=== PATIENT | female | born 1995 | race Caucasian/White ===

== ENCOUNTER → 2019-06-03 | Outpatient (CLI) | payer BC, MEDICARE, OTHER ==
--- NOTE | 2019-06-04 08:33 | USB ---
Reason for exam: clinical finding. History: Family history of breast cancer in maternal grandmother at age 64. Indicated problem(s): pain in the left breast. Physical Findings: Nurse Summary: patient states discomfort left breast at 12 o'clock area x 2 weeks, patient's mother states it comes with her period every month (nurse TM). US Breast LT Left complete breast ultrasound includes all four quadrants, the retroareolar region and axilla. Finding demonstrates no cystic or solid lesion seen. These results were verbally communicated with the patient and result sheet given to the patient on 06/03/19. ASSESSMENT: Benign, BI-RAD 2 RECOMMENDATION: Clinical management of the left breast. Manage patient on a clinical basis.
== END | disposition home or self-care (01) ==
LOC: RADUSWWP 13:56
PROVIDERS: ATTEND Internal Medicine
DX: N64.4 Mastodynia (principal)